=== PATIENT | male | born 2000 | race Caucasian/White ===

== ENCOUNTER 2022-06-08 22:34 | Emergency (ER) | payer OTHER ==
[2022-06-08 23:00] VITALS: BP 122/76; PULSE 85; RESP 19; TEMP 97.9; BMI 29.9
== END 2022-06-09 00:34 | disposition home or self-care (01) ==
LOC: JER 22:34 → JERFT 22:34
DX: S61.011A Laceration without foreign body of right thumb without damage to nail, initial encounter (principal)
CPT/HCPCS: 99283-25